=== PATIENT | female | born 1985 | race Caucasian/White ===

== ENCOUNTER 2018-07-20 23:58 | Emergency (ER) | payer SELFPAY ==
[~2018-07-20] VITALS: Ht 165.1 cm; Wt 68.2 kg
[~2018-07-20 23:58] MED LIST: NORCO 325 MG-7.1 TAB PO; OMNICEF 300MG300 MG PO; PREMPRO 0.625/21 TAB PO; ZOFRAN ODT4 MG PO
[2018-07-21 00:02] VITALS: TEMP 98.4
[2018-07-21 00:47] LABS: COLLECTION METHOD CLEAN CATCH
[2018-07-21] MEDS ORDERED: COPPER IUD (00:48)
[2018-07-21] MEDS ORDERED: SUBOXONE 8 MG-21 FIL SL (00:48)
[2018-07-21 00:54] LABS: MUCOUS Present /lpf; PH 5 (5-8); SQUAMOUS EPITHELIAL 0-2 /hpf; URINE APPEARANCE Clear; URINE BACTERIA None Seen /hpf; URINE BILIRUBIN Negative (NEGATIVE); URINE BLOOD Negative (NEGATIVE); URINE COLOR Yellow; URINE GLUCOSE Negative (NEGATIVE); URINE KETONE Negative (NEGATIVE); URINE LEUKOCYTE ESTERASE Negative (NEGATIVE); URINE NITRATE Negative (NEGATIVE); URINE PROTEIN(semi-quant) Negative (NEGATIVE); URINE RBC 0-2 /hpf; URINE UROBILINOGEN Negative (NEGATIVE)
[2018-07-21 01:34] LABS: BASO % 0.4 % (0.0-2.0); EOS # 0.5 (0.0-0.7); GRAN # 4.3 (1.4-6.5); GRAN % 60.6 % (42.2-75.2); HEMOGLOBIN 12.7 g/dl (12.5-16.0); LYMPH # 1.8 (1.2-3.4); LYMPH % 25.7 % (20.0-51.0); MEAN CELL VOLUME 93 fl (80.0-100.0); MEAN CORPUSCULAR HEMOGLOBIN 32 pg (27.0-31.0); MEAN CORPUSCULAR HGB CONC 34 g/dl (33.0-37.0); MEAN PLATELET VOLUME 8.9 fl (7.4-10.4); MONO # 0.4 (0.1-0.6); MONO % 6.2 % (1.7-9.3); PLATELET COUNT 206 K/mm3 (130-400); RED BLOOD COUNT 3.96 M/mm3 (4.10-5.30); REDCELL DISTRIBUTION WIDTH-CV 11.5 % (11.5-14.5)
[2018-07-21 01:46] LABS: ALBUMIN 4.3 gm/dL (3.5-5.0); BILIRUBIN,TOTAL 0.2 mg/dL (0.0-1.0); CREATININE, serum 0.54 mg/dL (0.52-1.25); POTASSIUM 4.3 mmol/L (3.4-5.0); TOTAL PROTEIN 7.3 gm/dL (6.4-8.2)
[2018-07-21 03:00] VITALS: BP 104/79; PULSE 91
== END 2018-07-21 03:04 | disposition home or self-care (01) ==
LOC: COL.ER 23:58
PROVIDERS: Emergency Medicine
DX: R10.9 Unspecified abdominal pain (principal); F17.210 Nicotine dependence, cigarettes, uncomplicated
CPT/HCPCS: J1170